=== PATIENT | male | born 1935 | race Caucasian/White ===

== ENCOUNTER 2016-07-06 09:42 | Emergency (ER) | payer MEDICARE, BC ==
--- NOTE | 2016-07-06 10:45 | Emergency Department Record ---
History of Present Illness - General Chief complaint: Rash Stated complaint: RASH Time Seen by Provider: 07/06/16 10:36 Source: Patient Mode of Arrival: Ambulatory Limitations: No limitations - History of Present Illness Initial comments: The patient is here due to a rash all over for one day. He was recently in [facility] for 4 days due to a biliary blockage and had a biliary stent placed. He was jaundiced and had a bili level of 26. That improved with the stent but he has had itching for the last 2 weeks with the jaundice. While in the hospital he believes he was on an antibiotic drip but was not discharged on any. The patient was discharged 9 days ago with itching but yesterday noticed a rash all over. Today the rash seems worse so he came to the ER. The patient denies being discharged on any new medicines or antibiotics. MD complaint: Rash Onset/Timin -: Days(s) Location: Generalized Improves with: None Worsens with: None Context: Other Associated symptoms: Itching - Related Data Home Medications Medication Instructions Recorded Confirmed Last Taken Aspirin [Adult Low Dose Aspirin EC] 81 mg PO DAILY 07/06/16 07/06/16 07/06/16 Cholecalciferol (Vitamin D3) 50,000 unit PO WEEKLY 07/06/16 07/06/16 07/02/16 [Vitamin D] Finasteride [Proscar] 5 mg PO ASDIR 07/06/16 07/06/16 07/06/16 Metoprolol Tartrate [Lopressor] 50 mg PO DAILY 07/06/16 07/06/16 07/06/16 Potassium Chloride [Klor-Con] 20 meq PO DAILY 07/06/16 07/06/16 07/06/16 Tamsulosin HCl [Flomax] 1 tab PO DAILY 07/06/16 07/06/16 07/06/16 Previous Rx's Medication Instructions Recorded Prednisone [Prednisone 20Mg] 40 mg PO DAILY #10 tab 07/06/16 Allergies Allergy/AdvReac Type Severity Reaction Status Date / Time naproxen Allergy Unknown RASH Unverified 07/06/16 10:22 Penicillins Allergy Unknown RASH Unverified 07/06/16 10:22 Travel Screening - Travel/Exposure Within Last 30 Days Have you traveled within the last 30 days?: No - Travel/Exposure Within Last Year Have you traveled outside the [place] in the last year?: No - Additonal Travel Details Have you been exposed to anyone with a communicable illness?: No - Travel Symptoms Symptom Screening: None Review of Systems Constitutional: Denies: Chills, Fever Eyes: Denies: Eye discharge ENT: Denies: Congestion Respiratory: Denies: Cough, Dyspnea Cardiovascular: Denies: Arrhythmia, Chest pain Past Medical History - SOCIAL HISTORY Smoking Status: Never smoker Alcohol Use: Rare Drug Use: None - RESPIRATORY Hx Respiratory Disorders: No - CARDIOVASCULAR Hx Cardio Disorders: Yes Hx Hypertension: Yes (on meds good control) - NEURO Hx Neuro Disorders: No - GI Hx GI Disorders: Yes Hx Abdominal Pain: Yes (LLQ from hernia) - Hx Genitourinary Disorders: Yes Hx Bladder Problem: Yes (freq urination) Hx 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 mom arthritis Physical Exam - General General Appearance: Alert, Oriented x3, Cooperative, No acute distress - Head Head exam: Atraumatic, Normocephalic, Normal inspection - Eye Eye exam: Normal appearance, PERRL - ENT Throat exam: Normal inspection. negative: Tonsillar erythema, Tonsillar exudate - Neck Neck exam: Normal inspection, Full ROM. negative: Tenderness - Respiratory Respiratory exam: Normal lung sounds bilaterally. negative: Respiratory distress - Cardiovascular Cardiovascular Exam: Regular rate, Normal rhythm, Normal heart sounds - GI/Abdominal GI/Abdominal exam: Soft, Normal bowel sounds. negative: Tenderness - Skin Skin exam: Rash (There is a diffuse scattered macular papular erythematous rash to the trunk and extremities. It appears to be a drug reactions type of rash.) Course Vital Signs 07/06/16 10:28 Temperature 97.9 F Pulse Rate 88 Respiratory 16 Rate Blood Pressure 136/86 Pulse Ox 98 - Reevaluation(s) Reevaluation #1: The patient is doing well. His last Bili was 21.5 on 06/27/16. I did discuss the case with Dr. Cooley and he would like him on a short course of oral steroids and will F/U with him in the office in 2 days. 07/06/16 12:03 Medical Decision Making - Lab Data Result diagrams: 07/06/16 10:53 07/06/16 10:53 Disposition Disposition: Discharge Clinical Impression: Dermatitis Disposition: Home, Self-Care Condition: (1) Good Instructions: Acute Rash (ED) Additional Instructions: Please continue your regular medicines. Start the Prednisone as directed. Please see Dr. Cooley in 2 days in the office. Prescriptions: Prednisone [Prednisone 20Mg] 40 mg PO DAILY #10 tab Forms: Patient Portal Access Time of Disposition: 12:06
[2016-07-06 11:01] LABS: BASO % 0.9 % (0-6); EOS % 3.5 % (0-6); GRAN % 69.7 % (47-80); HEMATOCRIT 46.1 % (42.0-52.0); HEMOGLOBIN 15.6 gm/dl (14.0-18.0); LYMPH % 15.3 % (16-45); MEAN CELL VOLUME 89.9 fl (81-97); MEAN CORPUSCULAR HEMOGLOBIN 30.4 pg (27-33); MEAN CORPUSCULAR HGB CONC 33.8 g/dl (32-36); MEAN PLATELET VOLUME 9.5 fl (7.4-10.4); MONO % 10.6 % (0-9); PLATELET COUNT 369 K/uL (130-400); RED BLOOD COUNT 5.13 M/uL (4.40-5.70); RED CELL DISTRIBUTION WIDTH 14.4 % (11.5-14.5); WHITE BLOOD COUNT W/O DIFF 8.7 K/uL (4.2-12.2)
[2016-07-06 11:12] LABS: ALKALINE PHOSPHATASE 303 U/L (38-126); ALT/SGPT 107 U/L (21-72); ANION GAP 9.5 (7-16); AST/SGOT 105 U/L (17-59); BILIRUBIN,DIRECT 1.7 mg/dL (0-0.3); BILIRUBIN,TOTAL 8.96 mg/dL (0.2-1.3); BLOOD UREA NITROGEN 20 mg/dL (9-20); CARBON DIOXIDE 25.5 mmol/L (22-30); CREATININE 1.1 mg/dL (0.66-1.25); EST GLOMERULAR FILTRATION RATE > 60 ml/min; GLUCOSE,RANDOM 138 mg/dL (70-110); TOTAL PROTEIN 7.8 gm/dL (6.3-8.2)
== END 2016-07-06 12:12 | disposition home or self-care (01) ==
LOC: ER 09:42
DX: L30.9 Dermatitis, unspecified (principal); E80.7 Disorder of bilirubin metabolism, unspecified; R74.8 Abnormal levels of other serum enzymes; I10 Essential (primary) hypertension
CPT/HCPCS: 80048; 80076; 85025; 99283

== ENCOUNTER 2017-01-08 07:37 | Day surgery (SDC) | payer MEDICARE, BC ==
[2017-01-08] MEDS ORDERED: PROPOFOL 10 MG/ML VIAL IV ONE (07:38)
[2017-01-08] MEDS ORDERED: EPINEPHRINE 1 MG/ML AMPUL SQ ONE (07:38)
[2017-01-08] MEDS ORDERED: NEOMYCIN/POLY./DEXAM OPTH OINT OPTH ONE (07:38)
[2017-01-08] MEDS ORDERED: TETRACAINE HCL 0.5% 15 ML OPTH BTL OPTH ONE (07:38)
[2017-01-08] MEDS ORDERED: LIDOCAINE 2% MDV (20MG/ML) 20ML VIAL IV ONE ×2 (07:38)
--- NOTE | 2017-01-08 14:56 | OP NOTE CHAMES ---
DATE OF PROCEDURE: 01/08/17 PREOPERATIVE DIAGNOSIS: Nuclear sclerotic cataract, left eye. POSTOPERATIVE DIAGNOSIS: Nuclear sclerotic cataract, left eye. OPERATION: Phacoemulsification of cataractous lens with implantation of intraocular lens. LENS IMPLANT USED: Marie Model PCB00 + 22.0 diopters. COMPLICATIONS: None. PROCEDURE IN DETAIL: Following a retrobulbar and facial block, the patient was prepped and draped in the usual fashion for eye surgery. A lid speculum was placed in the left eye after which a 2.4 mm tunnel wound was placed at the temporal limbus and dissected into clear cornea. A paracentesis was placed at 2 oclock hours to the left and right of the initial incision and the chamber deepened with Viscoelastic. The keratome was then used to enter the anterior chamber after which the continuous circular capsulorrhexis was accomplished without difficulty using a bent needle and a Utrata forceps. Hydrodissection and hydrodelineation of the lens was performed after which the nucleus of the lens was removed using the Phaco handpiece in the [id number] technique. The residual cortical material was irrigated and aspirated from the eye after which the bag and chamber were re-examined. The bag was re-inflated with Viscoelastic and the intraocular lens injected into the capsular bag where it centered well. The Viscoelastic was then copiously irrigated and aspirated from the eye after which the temporal tunnel wound and paracentesis were hydrated and the wounds were examined. They were noted to be watertight. The lid speculum was removed from the eye and the eye patched and shielded. The patient was transferred to the recovery room in satisfactory condition and given an appointment to be reexamined in the clinic later today or as directed by Dr. Bo. JOB NUMBER: [id number] [facility]
[2017-01-08] MEDS ORDERED: CIPROFLOXACIN HCL 0.0015 GM, PHENYLEPHRINE HCL 0.05 GM, KETOROLAC TROMETHAMINE 0.000625 GM MC ONE ×5 (15:00)
== END 2017-01-08 10:06 | disposition home or self-care (01) ==
LOC: SUR 07:37
PROVIDERS: ATTEND Ophthalmology
DX: H25.12 Age-related nuclear cataract, left eye (principal); I10 Essential (primary) hypertension; E78.00 Pure hypercholesterolemia, unspecified
CPT/HCPCS: J0171